=== PATIENT | male | born 1955 | race Caucasian/White ===

== ENCOUNTER 2017-02-01 11:41 | Inpatient (IN) | payer OTHER ==
--- NOTE | 2017-01-21 19:15 | HP ---
HISTORY AND PHYSICAL: DATE OF SURGERY: 02/01/17 DATE OF OFFICE VISIT: 01/21/17 SURGEON: Loren Valdez MD * (DICTATED BY AUGUSTINA PARSONS) PROCEDURE: Right total knee arthroplasty. CHIEF COMPLAINT: Right knee. HISTORY OF PRESENT ILLNESS: Mr. Warner is a 62-year-old gentleman with complaints of right knee pain secondary to endstage osteoarthritis. He has failed conservative management and elected proceed with a right total knee arthroplasty, which is scheduled with 02/01/[address] Valdez. PAST MEDICAL HISTORY: 1. Hypertension. 2. High cholesterol. 3. Anxiety. 4. Sleep apnea. PAST SURGICAL HISTORY: Left knee arthroscopy. CURRENT MEDICATIONS: 1. Lisinopril 20 mg daily. 2. Metoprolol 50 mg daily. 3. Citalopram hydrobromide 40 mg daily. 4. Lorazepam 0.5 mg daily. 5. Crestor 10 mg daily. 6. Aspirin 81 mg daily. ALLERGIES: None. FAMILY HISTORY: Diabetes, cancer, stroke, and emphysema. SOCIAL HISTORY: He is a 62-year-old gentleman, lives with his . He does not smoke or use drugs or alcohol. REVIEW OF SYSTEMS: A complete 14-point review of systems was reviewed with the patient, was positive for sleep apnea. He denies history of DVT, PE, hepatitis C, HIV, MRSA, or anesthesia problems. PHYSICAL EXAMINATION GENERAL: He is well developed, well nourished. No acute distress. VITAL SIGNS: He stands 6 feet tall, weighs 257 pounds. His blood pressure is 127/68, heart rate is 55. HEENT: Normocephalic, atraumatic. NECK: Supple. No palpable lymph nodes. PULMONARY: The lungs are clear to auscultation bilaterally. CARDIO: Regular rate and rhythm. Strong S1, S2. ABDOMEN: Soft, nontender, and nondistended. MUSCULOSKELETAL: Right lower extremity, the skin is intact. There is no open wounds or abrasions. There is a mild joint effusion and tenderness over the medial and lateral joint line. 5 to 125 degrees range of motion with patellofemoral crepitus, 2+ dorsalis pedis pulses and intact sensation. His lower extremity muscle group strengths are intact at 5/5. ASSESSMENT AND PLAN: Mr. Warner is a 62-year-old gentleman with complaints of right knee pain secondary to end-stage osteoarthritis. He has failed conservative management and elected to proceed with a right total knee arthroplasty, which is scheduled for 02/01/[address] Valdez discussed the risks and benefits of the surgery on today's visit and all of his questions were answered. Coumadin, Colace, and Percocet were sent to his pharmacy for postoperative pain control and DVT prophylaxis. He will follow up with Dr. Valdez in two weeks after the surgery. AUGUSTINA PARSONS [id number]/[facility] #: [id number] ABHIJEET
[~2017-02-01 11:41] MED LIST: Buffered Lidocaine 0.9% SYRIN* 5 ML/SYR SYRINGE INTRADERM ONE; Dexamethasone IV* 4 MG/ML 1 ML (4 MG) IV SLOW PU ONE; Famotidine IV* 10 MG/ML 2 ML (20 mg) IV ONE
[2017-02-01] MEDS ORDERED: Dexamethasone IV* 4 MG/ML 1 ML (4 MG) ONE (11:52)
[2017-02-01] MEDS ORDERED: ceFAZolin 2 GM PREMIX (*) 2 GM/50 ML BAG IVPB ONE (11:52)
[2017-02-01] MEDS ORDERED: Buffered Lidocaine 0.9% SYRIN* 5 ML/SYR SYRINGE ONE (11:52)
[2017-02-01] MEDS ORDERED: Famotidine IV* 10 MG/ML 2 ML (20 mg) ONE (11:52)
[2017-02-01] MEDS ORDERED: Propofol* 10 MG/ML 20 ML BTL IV PUSH ONE (14:00)
[2017-02-01] MEDS ORDERED: Bupivacaine 0.5% SDV PF* 30 ML VIAL ONE (14:00)
[2017-02-01] MEDS ORDERED: KETAMINE HCL* 50 MG/ML 10 ML VIAL ONE (14:00)
[2017-02-01] MEDS ORDERED: Midazolam* 1 MG/ML 10 ML VIAL (10 MG) ONE (14:00)
[2017-02-01] MEDS ORDERED: Ondansetron INJ* 2 MG/ML VIAL ONE (14:00)
[2017-02-01] MEDS ORDERED: Morphine PF AMP (0.5MG/ML)* 5 MG/10 ML AMP ONE (14:00)
[2017-02-01] MEDS ORDERED: EPHEDrine (Pressors)* 50 MG/ML VIAL ONE (14:04)
[2017-02-01] MEDS ORDERED: Nalbuphine* 20 MG/ML 1 ML VIAL IV PRN (15:33)
[2017-02-01] MEDS ORDERED: DiMENhydriNATE IV* 50 MG/ML VIAL IV PUSH PRN (15:33)
[2017-02-01] MEDS ORDERED: Ondansetron INJ* 2 MG/ML VIAL IV PRN (15:33)
[2017-02-01] MEDS ORDERED: oxyCODONE/Acetamin 5/325 MG* TAB PO PRN (15:33)
[2017-02-01] MEDS ORDERED: Naloxone* 0.4 MG/ML 1 ML VIAL IV PRN (15:33)
[2017-02-01] MEDS ORDERED: Ropivacaine* 300 MG in NS 0.9% 250 ML* 240 ML EPIDURAL SCH (16:00)
[2017-02-01] MEDS ORDERED: Scopolamine 1.5 mg* PATCH TRANSDERM SCH (16:00)
[2017-02-01] MEDS ORDERED: diPHENhydraMINE PO* 25 MG PO PRN (17:51)
[2017-02-01] MEDS ORDERED: Acetaminophen TAB* 325 MG PO PRN (17:51)
--- NOTE | 2017-02-01 18:29 | RAD ---
HISTORY: Status post right knee arthroplasty COMPARISONS: January 07, 2017 VIEWS: 2, Frontal and lateral views of the right knee FINDINGS: BONE DENSITY: Normal. BONES: The patient is status post right knee arthroplasty. There is no hardware failure or osteolysis. JOINTS: The patient is status post right knee arthroplasty. ALIGNMENT: There is no dislocation. SOFT TISSUES: There is post surgical change to the soft tissue. OTHER FINDINGS: None. IMPRESSION: STATUS POST RIGHT KNEE ARTHROPLASTY.
[2017-02-01] MEDS: Magnesium Hydroxide LIQ* 30 ML UDC PO SCH (20:42)
[2017-02-01] MEDS: Docusate CAP* 100 MG PO SCH (20:42)
[2017-02-01] MEDS: oxyCODONE/Acetamin 5/325 MG* TAB PO PRN (20:52)
[2017-02-01] MEDS ORDERED: Warfarin TAB(*) 6 MG PO ONE (21:00)
[2017-02-01] MEDS: ceFAZolin 1 GM VIAL(*) 1 GM in D5W 50 ML BAG* 50 ML IVPB SCH (22:16)
[2017-02-01] MEDS: Atorvastatin* 20 MG TAB PO SCH (22:20)
--- NOTE | 2017-02-02 00:52 | CONS ---
CC: Dr. Fernandez * CONSULTATION REPORT: DATE OF CONSULT: 02/01/17 PRIMARY CARE PROVIDER: Dr. Fernandez. ATTENDING PHYSICIAN: Dr. Shira Bedolla (dictated by Amarjit Esteves NP). PHYSICIAN REQUESTING CONSULTATION: Dr. Loren Valdez. REASON FOR CONSULTATION: Co-medical management for a patient with a history of hypertension, hyperlipidemia, and sleep apnea. HISTORY OF PRESENT ILLNESS: Mr. Warner is a 62-year-old male with past medical history significant for hypertension, hyperlipidemia, anxiety, and sleep apnea, who presented to the hospital for an elective right total knee arthroplasty today. The patient states that leading up to his procedure, he has been in his usual state of health. He denies any recent fever, chills, chest pain, shortness of breath, cough, nausea, vomiting, and diarrhea. Postoperatively, the patient states that his pain is controlled, he is feeling well. He does report itching due to his anesthesia and he is tolerating a diet. The hospitalist were asked to evaluate the patient. PAST MEDICAL HISTORY: 1. Hypertension. 2. Hyperlipidemia. 3. Anxiety. 4. Sleep apnea, uses CPAP. 5. Gout. PAST SURGICAL HISTORY: Status post left total knee arthroplasty. HOME MEDICATIONS: 1. Lisinopril 20 mg oral daily. 2. Metoprolol succinate 50 mg oral daily. 3. Citalopram 40 mg oral daily. 4. Lorazepam 0.5 mg oral every 6 hours as needed for anxiety. 5. Crestor 10 mg oral daily. 6. Aspirin 81 mg oral daily. 7. Colchicine 0.6 mg 2 tablets once for the onset of gout, a repeat in 1 to 2 hours. ALLERGIES: None. FAMILY HISTORY: The patient's father had an PR that he passed from at age 67. The patient's mother had a history of diabetes mellitus and an unknown cancer, around age 86. He had a maternal grandfather with a history of diabetes mellitus. SOCIAL HISTORY: The patient denies tobacco, alcohol, or recreational drug use. His , Coleen Warner will be his surrogate decision maker in the event he is unable to make decisions for himself. REVIEW OF SYSTEMS: I performed a 14-point review of systems. Pertinent positives and negatives are mentioned in the history of present illness. The remaining review of systems are negative. PHYSICAL EXAMINATION: Vital Signs: Temperature 97.0, heart rate 59, respiratory rate 16, O2 sat 99% on 2 L via nasal cannula, blood pressure 109/ 67. General Appearance: The patient is alert, pleasant, appears to be in no acute distress. HEENT: Normocephalic and atraumatic. Pupils are equal and reactive to light. Extraocular movements are intact. Respiratory: There is no accessory muscle use. The lungs are clear to auscultation bilaterally. Cardiovascular: Regular rate and rhythm. S1 and S2 present. There are no murmurs, rubs, or gallops heard. Abdomen: Large, soft, nontender. There are bowel sounds present x4. Extremities: There is no lower extremity edema. DP and PT pulses are 2+ and symmetric. Musculoskeletal: There is no clubbing or cyanosis noted. Neurological: The patient is alert and oriented x4. Cranial nerves II through XII are grossly intact. Psychological: The patient is calm and cooperative. Skin: The patient has a dressing that is clean, dry, and intact to his right knee. DIAGNOSTIC STUDIES/LABORATORY DATA: Preoperative labs from 01/21/17; sodium 136 , potassium 4.3, chloride 103, CO2 28, BUN 31, creatinine 1.01, glucose 86. White blood cell count 5.6, hemoglobin 13.6, hematocrit 41, and platelet count 212. EKG showed a sinus rhythm and no signs of ischemia dated 01/16/17. Chest x-ray from 01/21/17 shows no signs of cardiopulmonary disease. IMPRESSION: Mr. Warner is a 62-year-old male with a past medical history significant for hypertension, hyperlipidemia, anxiety and sleep apnea, who presented to the hospital for an elective right total hip arthroplasty with Dr. Valdez today. The hospitalists were asked to assist with co-medical management in this patient during his hospitalization. ASSESSMENT/PLAN: 1. Status post right total knee arthroplasty. Management will be per Orthopedic Surgery. The patient's H and H will be trended. He will have physical therapy and occupational therapy. He will have a urinary catheter in place until day 1. He will be placed on a bowel regimen and given pain medications. 2. Hypertension. We are going to hold the patient's lisinopril tonight and resume in the morning if his blood pressures allow. We will continue his metoprolol with holding parameters. 3. Hyperlipidemia. The patient will be continued on his home Crestor auto substitute. 4. Anxiety. The patient will be continued on his home lorazepam and citalopram. 5. Fluids, electrolytes, and nutrition. The patient will be on a clear liquid to regular diet. 6. Code status. Full code. 7. DVT prophylaxis. The patient will be placed on Lovenox bridged to warfarin per Orthopedic Surgery. 8. Disposition. Inpatient. TIME SPENT: Time for this consultation was approximately 45 minutes, greater than half of that was spent with the patient discussing medications, past medical history, the events leading up to his arrival today, and performing a physical examination. AMARJIT ESTEVES, NATASHA [id number]/[facility] #: [id number] MTDJasmina
[2017-02-02] MEDS: oxyCODONE/Acetamin 5/325 MG* TAB PO PRN ×4 (01:03→19:32)
[2017-02-02] MEDS: ceFAZolin 1 GM VIAL(*) 1 GM in D5W 50 ML BAG* 50 ML IVPB SCH ×2 (05:11→14:08)
[2017-02-02] MEDS ORDERED: Ondansetron INJ* 2 MG/ML VIAL IV PRN (06:00)
[2017-02-02 06:29] LABS: Hematocrit 37 % (42-52); Mean Platelet Volume 7 um3 (7.4-10.4)
--- NOTE | 2017-02-02 06:44 | OP ---
OPERATIVE REPORT: DATE OF OPERATION: 02/01/17 DATE OF : 53 SURGEON: Loren Valdez MD TIRE RECAPPER: AUGUSTINA Javier Mr. Hough did help throughout the procedure with preparation of the leg, wound retraction, manipulat ion of the knee, and wound closure. ANESTHESIOLOGIST: Daniel Snell MD ANESTHESIA: Spinal. PRE-OP DIAGNOSIS: Severe end-stage degenerative osteoarthritis of the right knee joint. POST-OP DIAGNOSIS: Severe end-stage degenerative osteoarthritis of the right knee joint. OPERATIVE PROCEDURE: Right total knee arthroplasty. INDICATIONS: Mr. Warner is a 62-year-old gentleman with years of increasingly severe right knee paco n. His radiographs showed [id number] arthritis. He failed conservative treatment with anti-inflam matory, pain medication, intra-articular injections, and physical therapy. Due to continued pain and decreased quality of life, he elected to undergo right total knee arthroplasty. Informed consent wa s obtained from the patient. He understood the risks of surgery included, but were not limited to, b leeding, infection, damage to nearby structures, continued pain, need for further surgery, intraopera tive fracture, nerve palsy, hardware failure or loosening, knee stiffness, loss of motion, stroke, he art attack, blood clot, and . He wished to proceed. HARDWARE USED: This is cemented [employer] total knee arthroplasty hardware. Two packages of S implex bone cement. For the femur, a size 6 right Oxinium posterior stabilized Legion femoral compon ent. For the tibia, a size 6 right tibial baseplate Alyson II. For the insert, an 11-mm posterior stabilized articular insert size 5/6 and for the patella, a 38-mm 3-peg all poly patella. TOURNIQUET TIME: 60 minutes. ESTIMATED BLOOD LOSS: 400 cc. COMPLICATIONS: None. SPECIMENS: Bone and cartilage sent from the right knee joint to Pathology. INTRAOPERATIVE FINDINGS: Intraoperatively, the patient was noted to have no ACL. He has severe subch ondral sclerosis of the medial tibial plateau due to chronic wear. He had tricompartmental . DESCRIPTION OF PROCEDURE: Mr. Warner was identified in the preanesthesia unit. His right lower extr emity was marked as the correct operative side. Informed consent was signed and placed in the chart. The patient was taken to the operating room and placed under spinal anesthesia without difficulty. A Garcia catheter was placed. Tourniquet was placed on the right thigh. Right lower extremity was p repped and draped in the usual sterile fashion. Preop time-out was made to correctly identify the pa tient's side and site. Appropriate perioperative antibiotics were given within 1 hour of incision. Tourniquet was inflated until tourniquet time for this procedure was 60 minutes. A 14-cm midline inc ision was made with a 10 blade and carried down to the extensor mechanism. New 10 blade was used to make standard medial parapatellar arthrotomy. The patella was subluxed laterally. Electrocautery was used to subperiosteally elevate the soft tissue off the superomedial tibia to the mid sagittal plane . The knee was flexed up. There was no ACL. The anterior horn of the lateral meniscus was sharply released. A drill was used to enter the distal femur. Intramedullary distal femoral cutting guide w as pinned on the distal femur. Oscillating saw was used to make the distal femoral cut. External ro tation guide was pinned on the distal femur and the distal femur was sized to a size 6. Size 6 multi -cutting jig was pinned on the distal femur. Oscillating saw was used to make the appropriate 4 ghada oracio cuts. The PCL was completely released. Tibia was subluxed anteriorly. Intramedullary tibial cut ting guide was pinned on the proximal tibia. Oscillating saw was used to make the appropriate proxim al tibial cut perpendicular to the mechanical axis of the tibia. The bone was carefully removed. It was noted that there was significant subchondral sclerosis along the medial tibial plateau due to ch ronic wear. The knee was brought out into full extension. Spacer block had excellent fit. The medi al and lateral ligaments were well balanced. Flexion and extension gaps were well balanced. The knee was flexed up. Lamina clinical coordinator was placed both medially and laterally. Any remaining menisc us was carefully removed using electrocautery. Posterior osteophytes were removed with a curved oste otome. Tibial tray and drop wanda were placed and once again confirmed satisfactory tibial cut. This was confirmed. A trial right size 6 femur was impacted on to the distal femur. The box for the post erior stabilized implant was prepared using a reamer and box-cut osteotome. A size 6 tibial tray tri al with an 11-mm insert trial was placed and the knee was taken through range of motion. The knee crawford d full extension to 130 degrees of flexion with good patellofemoral tracking. The patella was everte d. 9 mm of patellar bone and cartilage was carefully removed using an oscillating saw. The patella was sized to a size 38. The 3 peg holes were drilled through the size 38 guide. 38 trial patella wa s placed and the knee was taken through range of motion. There was satisfactory patellofemoral tracki ng. All trials were carefully removed. Tibia was subluxed anteriorly and sized to a size 6. Proximal ti calista was prepared using a size 6 keel punch. All bony prominences were copiously irrigated with steri le saline and dried. Final implants were cemented into place starting with the tibia, followed by th e femur and lastly the patella. The -mm insert trial was placed while the knee was brought out into full extension. Tourniquet was turned down at 60 minutes. The cement was allowed to fully cure . Once the cement had fully cured, the insert trial was removed. Any excess cement was removed from around the implant and capsule. Final insert chosen was an 11-mm posterior stabilized articular ins ert size 5/6. This was locked into position on the trial tray. Stability of the insert was checked and rechecked and noted to be stable. The extensor mechanism was closed using interrupted #1 Vicryls over a medium Hemovac drain. The rest of the incision was closed in a layered fashion using 0 and 2-0 Vicryls. Skin was closed using runn ing 3-0 nylon suture. Sterile Xeroform, 4x4s, and Webril were used to cover the incision. Lc wrap and cold pack were placed over this. The patient's anesthesia was reversed without difficulty. He was taken to the PACU in stable conditi on. Intended weightbearing will be weightbearing as tolerated. Intended DVT prophylaxis will be Coum francine with Lovenox bridge. [id number]/[facility] #: [id number]
[2017-02-02 06:51] LABS: BUN/Creatinine Ratio 17.3 (8-20); Calcium 8.5 mg/dL (8.6-10.3); EGFR African American 99.3 (>60); EGFR Non-African American 77.2 (>60); Potassium 4.1 mmol/L (3.5-5.0)
[2017-02-02] MEDS: Morphine INJ* 2 MG/ML 1 ML SYRINGE (TWO MG - NEW SYRINGE VERSION) IV PRN ×3 (07:17→15:33)
[2017-02-02] MEDS: Docusate CAP* 100 MG PO SCH ×2 (07:18→19:33)
[2017-02-02] MEDS: LORazepam TAB(*) 0.5 MG PO SCH (07:18)
[2017-02-02] MEDS: Magnesium Hydroxide LIQ* 30 ML UDC PO SCH ×2 (07:19→19:33)
[2017-02-02] MEDS: Citalopram TAB* 40 MG PO SCH (07:19)
[2017-02-02] MEDS: Metoprolol Succinate XL TAB* 50 MG PO SCH (07:19)
[2017-02-02] MEDS ORDERED: LISINOPRIL PO SCH (09:00)
[2017-02-02] MEDS ORDERED: Metoprolol Succinate XL TAB* 50 MG PO SCH (09:00)
[2017-02-02] MEDS: Enoxaparin(*) 40 MG/0.4 ML SYR SUBCUT SCH (09:56)
--- NOTE | 2017-02-02 10:07 | PN ---
Progress Note - Progress Note Date of Service: 02/02/17 SOAP: Subjective: Pt. is alert, reports pain is under control. Objective: RLE - drain removed and tip intact. drainage copious from drain sight, dark red blood. distally nvi. Vital Signs: Temp Pulse Resp BP Pulse Ox 97.6 F 62 18 150/76 97 02/02/17 07:40 02/02/17 07:40 02/02/17 09:56 02/02/17 07:40 02/02/17 07:40 Laboratory Results - last 24 hr 02/02/17 02/02/17 02/02/17 06:05 06:05 06:05 Hgb 12.0 L Hct 37 L Plt Count 232 MPV 7 L INR (Anticoag Therapy) 0.97 Sodium 132 L Potassium 4.1 Chloride 99 L Carbon Dioxide 25 Anion Gap 8 BUN 17 Creatinine 0.98 Est GFR ( Amer) 99.3 Est GFR (Non-Af Amer) 77.2 BUN/Creatinine Ratio 17.3 Glucose 155 H Calcium 8.5 L Assessment: 62 yo M pod 1 s/p RTKA Plan: reinforce dressing as needed. wbat pt/ot 8 mg coumadin tonight, lovenox today possible d/c to home tomorrow
[2017-02-02] MEDS ORDERED: diPHENhydraMINE PO* 25 MG ONE (12:20)
[2017-02-02] MEDS ORDERED: diPHENhydraMINE PO* 25 MG PO PRN (12:27)
[2017-02-02] MEDS ORDERED: oxyCODONE/Acetamin 5/325 MG* TAB ONE (14:06)
[2017-02-02] MEDS: oxyCODONE TAB* 5 MG TAB PO PRN ×2 (16:49→23:20)
[2017-02-02] MEDS: Atorvastatin* 20 MG TAB PO SCH (16:49)
[2017-02-02] MEDS ORDERED: Warfarin TAB(*) 4 MG PO ONE (17:00)
--- NOTE | 2017-02-02 17:34 | RAD ---
INDICATION: Right testicular pain COMPARISON: None TECHNIQUE: Duplex interrogation of the scrotum was performed. FINDINGS: Testicles: The testicles are Normal in size and echogenicity. There is no evidence of testicular mass. There is symmetric flow on Doppler interrogation. There is no evidence of torsion.. The right testis measures 4.2 x 2.9 x 3.4 cm and the left 4.4 x 2.7 x 3.5 cm. There is is mild hyperemia of the right testis relative to the left. This suggests possibility of orchitis. Epididymides: There is no evidence of an epididymal mass. The epididymides are normal in size. There is symmetric flow on Doppler interrogation. The right epididymal head measures 1.1 x 1.1 cm and the left 1.2 x 0.9 cm. Hydroceles: There are bilateral complex hydroceles. Varicoceles: None. Other: None. IMPRESSION: MILD HYPEREMIA OF THE RIGHT TESTIS MAY RELATE TO MILD ORCHITIS. BILATERAL COMPLEX HYDROCELES.
--- NOTE | 2017-02-02 17:47 | PN ---
Subjective Date of Service: 02/02/17 Interval History: Interviewed and examined patient at bedside; Discussed case with ortho team ; Reviewed previous notes and radiology results; Patient doing well. + knee pain, but controlled. later in day, reported R testicular pain. No obvious mass. Urgent R testicle ultrasound --> + blood flow, but hyperemia and complex hydroceles. discussed elevating scrotum. Family History: Unchanged from Admission Social History: Unchanged from Admission Past Medical History: Unchanged from Admission Objective Active Medications: . Acetaminophen (Tylenol Tab*) 650 mg PO Q4H PRN PRN Reason: FEVER/PAIN Atorvastatin Calcium (Lipitor*) 20 mg PO QPM [facility] PRN Reason: Protocol Last Admin: 02/02/17 16:49 Dose: 20 mg Citalopram Hydrobromide (Celexa Tab*) 40 mg PO DAILY [facility] Last Admin: 02/02/17 07:19 Dose: 40 mg Diphenhydramine HCl (Benadryl Po*) 25 mg PO Q6H PRN PRN Reason: ITCHING Docusate Sodium (Colace Cap*) 100 mg PO BID [facility] Last Admin: 02/02/17 07:18 Dose: 100 mg Enoxaparin Sodium (Lovenox(*)) 40 mg SUBCUT Q24H [facility] Last Admin: 02/02/17 09:56 Dose: 40 mg Lactated Ringer's (Lactated Ringers 1000 Ml Bag*) 1,000 mls @ 100 mls/hr IV PER RATE [facility] Last Admin: 02/02/17 06:20 Dose: 100 mls/hr Lactulose (Lactulose*) 30 ml PO Q6H PRN PRN Reason: constipation Lorazepam (Ativan Tab(*)) 0.5 mg PO QAM [facility] Last Admin: 02/02/17 07:18 Dose: 0.5 mg Magnesium Hydroxide (Milk Of Magnesia Liq*) 30 ml PO BID [facility] Last Admin: 02/02/17 07:19 Dose: 30 ml Metoprolol Succinate (Toprol Xl Tab*) 50 mg PO QAM [facility] Last Admin: 02/02/17 07:19 Dose: 50 mg Morphine Sulfate (Morphine Inj (Syringe)*) 2 mg IV Q2H PRN PRN Reason: PAIN - BREAKTHROUGH Last Admin: 02/02/17 15:33 Dose: 2 mg Ondansetron HCl (Zofran Inj*) 4 mg IV Q6H PRN PRN Reason: nausea Oxycodone HCl (Roxycodone Tab*) 10 mg PO Q4H PRN PRN Reason: PAIN - SEVERE Last Admin: 02/02/17 16:49 Dose: 10 mg Oxycodone/Acetaminophen (Percocet 5/325 Tab*) 1 tab PO Q4H PRN PRN Reason: PAIN Oxycodone/Acetaminophen (Percocet 5/325 Tab*) 2 tab PO Q4H PRN PRN Reason: PAIN - MODERATE Last Admin: 02/02/17 14:07 Dose: 2 tab Pharmacy Profile Note (Scopolamine Patch Remove*) 1 note PATCH OFF .AFTER 72 HOURS ONE Stop: 02/04/17 15:38 Pharmacy Profile Note (Coumadin Daily Reminder*) 1 note FOLLOW UP 1700 ADRIANA Last Admin: 02/02/17 16:50 Dose: 1 note Scopolamine (Transderm-Scop 1.5 Mg Patch*) 1 patch TRANSDERM Q72H [facility] Last Admin: 02/02/17 07:19 Dose: Not Given . Vital Signs - 8 hr 02/02/17 02/02/17 02/02/17 09:56 11:31 12:09 Temperature 97.6 F Pulse Rate 79 Respiratory 18 16 18 Rate Blood Pressure 160/69 (mmHg) O2 Sat by Pulse 97 Oximetry 02/02/17 02/02/17 02/02/17 12:14 12:25 13:13 Temperature Pulse Rate Respiratory 18 20 18 Rate Blood Pressure (mmHg) O2 Sat by Pulse Oximetry Oxygen Devices in Use Now: None Appearance: NAD Eyes: No Scleral Icterus Ears/Nose/Mouth/Throat: Clear Oropharnyx Respiratory: Symmetrical Chest Expansion and Respiratory Effort Cardiovascular: NL Sounds; No Murmurs; No JVD Abdominal: NL Sounds; No Tenderness; No Distention, - - Scrotal exam normal except for subjective R testicle tenderness (no masses appreciated by me on exam ) see U/S. Lymphatic: No Cervical Adenopathy Extremities: No Edema, - - R knee packed / drain in situ - Skin: No Rash or Ulcers Neurological: Alert and Oriented x 3 Lines/Tubes/Other Access: Clean, Dry and Intact Peripheral IV Nutrition: Taking PO's Result Diagrams: 02/02/17 06:05 02/02/17 06:05 Assess/Plan/Problems-Billing . Assessment: 62 yo man s/p elective R knee surgery w/o complication. medical issues are all controlled. some itching --> benadryl ordered R testicular pain --> U/S confirms related to complex varicocele--> will recommend elevating scrotum. - Patient Problems (1) Status post total right knee replacement Current Visit: Yes Status: Acute Priority: High Code(s): Z96.651 - PRESENCE OF RIGHT ARTIFICIAL KNEE JOINT Comment: - As per ortho, some pain expressed. - follow H&H. (2) Depression Current Visit: No Status: Chronic Priority: Medium Code(s): F32.9 - MAJOR DEPRESSIVE DISORDER, SINGLE EPISODE, UNSPECIFIED Comment: - Continue celexa. (3) Hypertension Current Visit: No Status: Chronic Priority: Medium Code(s): I10 - ESSENTIAL (PRIMARY) HYPERTENSION Comment: - Continue lisinopril and metoprolol. (4) DVT prophylaxis Current Visit: Yes Status: Acute Priority: High Code(s): [id number] - Comment: - Warfarin as per ortho protocol. (5) Right testicular pain Current Visit: Yes Status: Acute Priority: Medium Code(s): N50.811 - RIGHT TESTICULAR PAIN Comment: - Ultrasound --> complex varicocele - Elevation of scrotum
[2017-02-02] MEDS: Cyclobenzaprine TAB* 10 MG PO PRN (20:30)
[2017-02-03] MEDS: oxyCODONE/Acetamin 5/325 MG* TAB PO PRN ×2 (03:44→08:25)
[2017-02-03] MEDS ORDERED: hydrALAZINE IV* 20 MG/ML VIAL IV SLOW PU PRN (05:10)
[2017-02-03] MEDS: oxyCODONE TAB* 5 MG TAB PO PRN (05:19)
[2017-02-03] MEDS: Cyclobenzaprine TAB* 10 MG PO PRN (05:20)
[2017-02-03] MEDS: Metoprolol Succinate XL TAB* 50 MG PO SCH (08:23)
[2017-02-03] MEDS: Citalopram TAB* 40 MG PO SCH (08:24)
[2017-02-03] MEDS: LORazepam TAB(*) 0.5 MG PO SCH (08:24)
[2017-02-03] MEDS: Docusate CAP* 100 MG PO SCH (08:24)
--- NOTE | 2017-02-03 08:51 | PN ---
Progress Note - Progress Note Date of Service: 02/03/17 SOAP: Subjective: Pt. is alert, wants to go home today. Objective: RLE - dressing changed, inc c/d/i. distally nvi. mod effusion. Vital Signs: Temp Pulse Resp BP Pulse Ox 98.5 F 75 20 153/68 99 02/03/17 07:15 02/03/17 07:15 02/03/17 08:25 02/03/17 07:15 02/03/17 07:15 Assessment: 62 yo M pod 2 s/p RTKA Plan: wbat rle pt/ot labs pending plan d/c to home today with vns
[2017-02-03 09:50] LABS: Hematocrit 35 % (42-52); Hemoglobin 11.7 g/dl (14.0-18.0)
[2017-02-03] MEDS: Magnesium Hydroxide LIQ* 30 ML UDC PO SCH (10:42)
--- NOTE | 2017-02-03 11:40 | DS ---
DISCHARGE SUMMARY: DATE OF ADMISSION: 02/01/17 DATE OF DISCHARGE: 02/03/17 PROVIDER: Loren Valdez MD.* (DICTATED BY AUGUSTINA PARKER) ADMITTING DIAGNOSIS: Severe end-stage osteoarthritis of the right knee. DISCHARGE DIAGNOSIS: Severe end-stage osteoarthritis of the right knee status post right total knee arthroplasty. SECONDARY DIAGNOSES: 1. Hypertension. 2. High cholesterol. 3. Anxiety. 4. Sleep apnea. HISTORY OF PRESENT ILLNESS: Mr. Warner is a 62-year-old gentleman who has been followed by Dr. Valdez for ongoing complaints of right knee pain secondary to end- stage osteoarthritis. He failed conservative management and elected to proceed with right total knee arthroplasty. HOSPITAL COURSE: On 02/01/17, the patient was admitted to [facility] and underwent a successful right total knee arthroplasty by Dr. Valdez. He recovered briefly in the post-anesthesia care unit and was transferred to the short- stay surgical unit in stable condition. Postoperative x-rays were satisfactory in PACU. Postop day 1, the patient's pain was controlled with oral and IV pain medication. He was able to participate with physical therapy and ambulate short distance with the rolling walker. He had an H and H of 12.0 and 37. INR was 0.97 with 6 mg of Coumadin previously. On postop day 2, the patient's pain was controlled with oral pain medication only. H and H was 11.7 and 35. INR was 1.21 with 8 mg of Coumadin previously. The patient did have one episode of hypertension in the middle of the night, this was controlled with one time dose of IV hydralazine. The patient was asymptomatic with the hypertension, however. On postop day 2, the patient was found stable for discharge home. He remained afebrile throughout his hospital course. DISCHARGE CONDITION: Stable. DISCHARGE MEDICATIONS: The patient will take; 1. Percocet 5/325 one to two tabs p.o. q. 4 to 6 hours p.r.n. pain. 2. Colace 100 mg p.o. b.i.d. p.r.n. constipation. 3. Aspirin 325 mg p.o. b.i.d. 4. Cyclobenzaprine 10 mg p.o. t.i.d. p.r.n. 5. He will resume his home medications of lisinopril 20 mg p.o. daily. 6. Celexa 40 mg p.o. daily. 7. Ativan 0.5 mg p.o. daily p.r.n. 8. Metoprolol succinate 50 mg p.o. daily. 9. Imodium 3 tabs p.o. daily p.r.n. 10. Ibuprofen 400 mg p.r.n. The patient was advised to take sparingly due to the aspirin. DISCHARGE INSTRUCTIONS: The patient is to keep his dressing clean, dry, and intact until 02/05/17. He may remove the dressing at that time and shower normally. He will cover the incision with a dry dressing as needed. He will have home visiting nurse for wound checks and home physical therapy. He will follow up in the office 10 to [address] Valdez. He is understanding to call the office with any problems or concerns. He is understanding not to submerge his incision in a bathtub, hot tub, or swimming pool. He will go directly to the emergency room with any chest pain, shortness of breath, fever greater than 100.5, calf pain, or swelling. AUGUSTINA PARKER [id number]/[facility] #: [id number] MTDD
[2017-02-03 13:26] VITALS: BP 146/79
[2017-02-03] MEDS: Enoxaparin(*) 40 MG/0.4 ML SYR SUBCUT SCH (14:32)
--- NOTE | 2017-02-03 17:09 | PN ---
Hospitalist Progress Note Date of Service: 02/03/17 . Met with patient before discharge at his request to review medical issues as well as his testicular pain. I reviewed the ultrasound results in detail and he states he is doing much better. He is relieved to know there was no norman-related trauma and no impairment of the circulation to his R testicle. He is cleared for discharge from a medical perspective. No further treatment warranted and no changes recommended to medication regimen. Total visit time: 25 minutes of face to face counselling and coordination of care. .
[2017-02-04] MEDS ORDERED: Scopolamine PATCH Remove* 1 NOTE MISC PATCH OFF ONE (15:37)
== END 2017-02-03 12:10 | disposition home health service (06) | DRG 302 ==
LOC: AA 11:41 → SSU 20:23 → UNDODISIN 02-02 13:27
PROVIDERS: ADMIT Orthopaedic Surgery Adult Reconstructive Orthopaedic Surgery; ATTEND Orthopaedic Surgery Adult Reconstructive Orthopaedic Surgery
PROC: 0SRC069 Replacement of Right Knee Joint with Oxidized Zirconium on Polyethylene Synthetic Substitute, Cemented, Open Approach (ICD-10-PCS; principal; 2017-02-01 14:15)
DX: M17.11 Unilateral primary osteoarthritis, right knee (principal); E78.00 Pure hypercholesterolemia, unspecified; M10.9 Gout, unspecified; I10 Essential (primary) hypertension; M25.761 Osteophyte, right knee; F41.9 Anxiety disorder, unspecified; G47.30 Sleep apnea, unspecified; I86.1 Scrotal varices; N50.811 Right testicular pain; Z79.82 Long term (current) use of aspirin; Z79.899 Other long term (current) drug therapy; Z83.3 Family history of diabetes mellitus; Z82.3 Family history of stroke; Z82.5 Family history of asthma and other chronic lower respiratory diseases; Z80.9 Family history of malignant neoplasm, unspecified
CPT/HCPCS: 36415; 62325; 76870; 80048; 85014; 85018; 85049; 85610; A9270-GY; C1776; J0360; J0690; J1100; J1650; J2250; J2270; J2405; J2704; J2795